=== PATIENT | male | born 1980 | race Caucasian/White ===

== ENCOUNTER 2018-07-23 07:05 | Emergency (ER) | payer OTHER ==
--- NOTE | 2018-07-23 07:27 | EDPHY ---
H & P Stated Complaint: cough congestion Time Seen by Provider: 07/23/18 07:26 HPI/ROS: CHIEF COMPLAINT: Cough, congestion HISTORY OF PRESENT ILLNESS: The patient has a history of diabetes and presents to the ED with a 2 day history of cough and congestion. The patient has been exposed to a family member who currently has influenza. The patient reports moderate dyspnea. The patient denies any abdominal pain, vomiting or diarrhea. Patient denies any headache, numbness or weakness. He denies rash. He denies significant abdominal discomfort. He reports his symptoms are mild in nature. REVIEW OF SYSTEMS: A comprehensive 10 point review of systems is otherwise negative aside from elements mentioned in the history of present illness. Source: Patient - Personal History Current Tetanus/Diphtheria Vaccine: Yes - Medical/Surgical History Hx Asthma: No Hx Chronic Respiratory Disease: No Hx Diabetes: Yes Hx Cardiac Disease: No Hx Renal Disease: No Hx Cirrhosis: No Hx Alcoholism: No Hx HIV/AIDS: No Hx Splenectomy or Spleen Trauma: No Other PMH: diabetic type 2 - Social History Smoking Status: Current every day smoker - Physical Exam Exam: General Appearance: Alert, no distress Eyes: Pupils equal and round no pallor or injection ENT, Mouth: Mucous membranes moist Respiratory: Mild expiratory wheezing Cardiovascular: Regular rate and rhythm Gastrointestinal: Abdomen is soft and nontender, no masses, bowel sounds normal Neurological: A&O, normal motor function, normal sensory exam, normal cranial nerves Skin: Warm and dry, no rashes Musculoskeletal: Neck is supple nontender, specifically no meningeal symptoms Extremities: symmetrical, full range of motion Constitutional: Initial Vital Signs Temperature (C) 36.8 C 07/23/18 07:09 Heart Rate 73 07/23/18 07:09 Respiratory Rate 18 07/23/18 07:09 Blood Pressure 154/82 H 07/23/18 07:09 O2 Sat (%) 93 07/23/18 07:09 O2 Delivery Mode Room Air Allergies/Adverse Reactions: No Known Allergies Allergy (Unverified 07/23/18 07:09) Home Medications: Medication Instructions Recorded Albuterol [Ventolin Hfa Inhaler] 2 puffs IH QID PRN #1 mdi 07/23/18 Humulin 70-30 Vial 07/23/18 Oseltamivir Phosphate [Tamiflu] 75 mg PO BID #10 cap 07/23/18 Medical Decision Making - Diagnostics Imaging Results: Imaging Impressions Chest X-Ray 07/23/18 07:36 Impression: 1. Right upper lobe 2 x 2.1 cm rounded density, which may represent neoplasm, noncalcified granuloma, or rounded pneumonia. 2. Mild bronchitis. 3. Recommend CT chest. Findings and recommendations discussed with Emergency Department physician, Dr. Jared Marroquin at 0817 hours on July 23, 2018. Final report concurs with initial preliminary interpretation. Chest CT 07/23/18 08:16 Impression: 1. Coronary atherosclerosis. Recommend follow-up cardiology. 2. Benign right upper lobe partially calcified 2 x 1.6 cm benign granuloma versus hamartoma. 3. No suspicious pulmonary nodules, acute pneumonia, pleural effusion or pneumothorax. Findings and recommendations discussed with Emergency Department physician, Dr. Jared Marroquin at 0845 hours on July 23, 2018. Final report concurs with initial preliminary interpretation. ED Course/Re-evaluation: The patient presents to the ED with symptoms consistent with mild influenza. Given the patient's wheezing a x-ray was obtained. Chest x-ray demonstrates no evidence of an obvious pneumonia but does demonstrate a lung nodule. Given the patient's smoking status a CT scan was obtained which demonstrates a well calcified nodule in the lung parenchyma. The patient has incidentally noted coronary artery calcifications. The patient will be treated for influenza and bronchitis. Additionally the patient is asked to follow up with our on-call frog farmer regarding his coronary artery calcifications. Re-evaluated the patient at 9:00 a.m.. He is in no acute distress. The patient is new to [place] and has been referred to [facility] to establish primary care. Differential Diagnosis: Differential diagnosis considered includes asthma, bronchitis, pneumonia, influenza Departure - Departure Disposition: Home, Routine, Self-Care Clinical Impression: Influenza, Acute bronchitis, Coronary artery calcification Condition: Good Instructions: Influenza (ED) Additional Instructions: 1. Tamiflu as prescribed will influenza. 2. Please use albuterol inhaler every 4 hr as needed for cough. 3. Your CT scan does demonstrate some calcifications in your coronary arteries - I do recommend scheduling a follow-up appointment with Cardiology given year history of diabetes for further evaluation of this finding. 4. Please return to the emergency department for any worsening symptoms or other concerns. 5. Please schedule a follow[facility]up [facility] to establish primary care. Referrals: Lorenzo Clakr MD [Medical Doctor] - As per Instructions [facility],. [Clinic] - As per Instructions Prescriptions: Albuterol [Ventolin Hfa Inhaler] 2 puffs IH QID PRN #1 mdi PRN Reason: for shortness of breath Oseltamivir Phosphate [Tamiflu] 75 mg PO BID #10 cap
[2018-07-23 09:09] VITALS: BP 151/94
== END 2018-07-23 09:08 | disposition home or self-care (01) ==
DX: J11.1 Influenza due to unidentified influenza virus with other respiratory manifestations (principal); J20.9 Acute bronchitis, unspecified; R93.1 Abnormal findings on diagnostic imaging of heart and coronary circulation; R91.1 Solitary pulmonary nodule; E11.9 Type 2 diabetes mellitus without complications; F17.200 Nicotine dependence, unspecified, uncomplicated